=== PATIENT | male | born 1990 | race Hispanic/Latino ===

== ENCOUNTER 2022-01-09 13:44 | Emergency (ER) | payer SELFPAY | END 2022-01-09 14:34 | disposition home or self-care (01) | LOC: CSHERS 13:44 | DX: M25.562 Pain in left knee (principal); F17.200 Nicotine dependence, unspecified, uncomplicated ==

== ENCOUNTER 2022-06-18 15:39 | Emergency (ER) | payer SELFPAY | END 2022-06-18 16:28 | disposition home or self-care (01) | LOC: CSHERS 15:39 | DX: T16.2XXA Foreign body in left ear, initial encounter (principal); H61.22 Impacted cerumen, left ear; S00.412A Abrasion of left ear, initial encounter | CPT/HCPCS: 69200 ==

== ENCOUNTER 2024-03-25 16:44 | Emergency (ER) | payer SELFPAY | END 2024-03-25 18:44 | disposition home or self-care (01) | LOC: CSHERS 16:44 | DX: R42 Dizziness and giddiness (principal); F17.210 Nicotine dependence, cigarettes, uncomplicated; Z55.0 Illiteracy and low-level literacy | CPT/HCPCS: 93005 ==

== ENCOUNTER 2024-04-17 09:24 | Emergency (ER) | payer SELFPAY | END 2024-04-17 11:16 | disposition home or self-care (01) | LOC: CSHERS 09:24 | DX: S63.91XA Sprain of unspecified part of right wrist and hand, initial encounter (principal); F17.210 Nicotine dependence, cigarettes, uncomplicated; W22.8XXA Striking against or struck by other objects, initial encounter; Y99.0 Civilian activity done for income or pay ==

== ENCOUNTER 2024-10-21 16:58 | Emergency (ER) | payer SELFPAY ==
[2024-10-21] MEDS ORDERED: Bacitracin 1 PK ONE (18:06)
[2024-10-21] MEDS ORDERED: Boostrix 0.5 ML (Tdap) VIAL (>/=7 yrs of age) ONE (18:06)
== END 2024-10-21 18:29 | disposition home or self-care (01) ==
LOC: CSHERS 16:58
DX: S80.812A Abrasion, left lower leg, initial encounter (principal); S80.811A Abrasion, right lower leg, initial encounter; F17.210 Nicotine dependence, cigarettes, uncomplicated; W11.XXXA Fall on and from ladder, initial encounter
CPT/HCPCS: 90471; 90715